=== PATIENT | male | born 1985 | race Caucasian/White ===

== ENCOUNTER 2022-01-12 12:32 | Day surgery (SDC) | payer BC ==
[2022-01-12] MEDS ORDERED: Fentanyl 100 MCG/2 ML VIAL ONE (13:43)
[2022-01-12] MEDS ORDERED: Sodium Chloride 0.9% 100 ML ONE (13:44)
[2022-01-12] MEDS ORDERED: Piperacillin/Tazobactam 3.375 GM VIAL ONE (13:44)
[2022-01-12] MEDS ORDERED: Bupivacaine/Epinephrine 0.25% 30 ML VIAL ONE (13:50)
[2022-01-12] MEDS ORDERED: fentaNYL Citrate/PF 100 MCG/2 ML SYRINGE ONE (13:56)
[2022-01-12] MEDS ORDERED: PROPOFOL 200 MG/20 ML VIAL ONE (14:05)
[2022-01-12] MEDS ORDERED: Metoclopramide HCl 10 MG/2 ML VIAL ONE (14:05)
[2022-01-12] MEDS ORDERED: Lidocaine 1% PF 5 ML VIAL ONE (14:05)
[2022-01-12] MEDS ORDERED: Ketorolac Tromethamine 30 MG/ML VIAL ONE (14:05)
[2022-01-12] MEDS ORDERED: Glycopyrrolate 0.2 MG/ML 5 ML SYRINGE ONE (14:05)
[2022-01-12] MEDS ORDERED: Rocuronium Bromide 10 MG/ML (10ML VIAL) ONE (14:05)
[2022-01-12] MEDS ORDERED: Dexamethasone 20 MG/5 ML VIAL ONE (14:05)
[2022-01-12] MEDS ORDERED: Succinylcholine 200 MG/10 ml SYRINGE FS ONE (14:05)
[2022-01-12] MEDS ORDERED: Ondansetron PF 4 MG/2 ML Vial ONE (14:05)
[2022-01-12] MEDS ORDERED: SUGAMMADEX SODIUM 200 MG/2 ML VIAL ONE (14:42)
== END 2022-01-12 16:40 | disposition home or self-care (01) ==
LOC: SDC 12:32
PROVIDERS: ATTEND Surgery
PROC: 0DTJ4ZZ Resection of Appendix, Percutaneous Endoscopic Approach (ICD-10-PCS; principal; 2022-01-12)
DX: K35.30 Acute appendicitis with localized peritonitis, without perforation or gangrene (principal); K38.8 Other specified diseases of appendix
CPT/HCPCS: 88304; A4649; J1100; J1885; J2405; J2543; J2704; J2710; J2765; J3010; J3490